=== PATIENT | male | born 1995 | race Caucasian/White ===

== ENCOUNTER 2020-01-21 08:28 | Emergency (ER) | payer OTHER ==
[~2020-01-21] VITALS: Ht 190.5 cm; Wt 122.5 kg
[~2020-01-21 08:28] MED LIST: ATA25 PO; CEPH500T PO; CETI-55 PO; HYD2.5O TP; KEN.025C TP
--- NOTE | 2020-01-21 08:29 | NUR ---
PT AMBULATED TO ER BED 11
[2020-01-21 08:41] VITALS: BP 122/53
[2020-01-21] MEDS ORDERED: NACL 0.9% 1,000 ML IV ONE (08:50)
--- NOTE | 2020-01-21 08:55 | NUR ---
24 Y/O C/C ABDOMINAL PAIN X 3 DAYS. PER PT PRESSURE SENSATION IN THE LUQ RADIATING TO THE LLQ, 10/10 PAIN. PER PT CONSTIPATION WITH SMALL PRODUCTION OF BM, PER PT BROWN/PARTS. LAST BM 1 HOUR AGO SMALL HEMATOCHEZIA, DARK RED BLOOD. PT DENIES DYSURIA. NKA. NO HX. NO SX. NO RX. NO NVD. SIDE RAIL X1.
--- NOTE | 2020-01-21 08:59 | NUR ---
PT TAKEN TO CT VIA WHEELCHAIR
--- NOTE | 2020-01-21 09:19 | NUR ---
ERMD AT BEDSIDE
[2020-01-21 09:30] LABS: BASOPHILS % (AUTO) 0.5 % (0.0-2.0); EOSINOPHILS % (AUTO) 0.3 % (0.0-4.0); HEMATOCRIT 44.4 % (36-52); HEMOGLOBIN 15.6 g/dL (12.0-18.0); MEAN CORPUSCULAR HEMOGLOBIN 32 pg (27-31); MEAN CORPUSCULAR HGB CONC 35 g/dL (33-37); MEAN CORPUSCULAR VOLUME 92.3 fL (80-94); NEUTROPHILS # (AUTO) 5.4 K/uL (1.8-7.7); PLATELET COUNT (AUTO) 232 K/uL (140-450); RED BLOOD CELL COUNT(AUTO) 4.82 MIL/uL (4.20-6.10); RED CELL DISTRIBUTION WIDTH 12.1 % (11.6-13.7); WHITE BLOOD COUNT (AUTO) 7.5 K/uL (4.8-10.8)
[2020-01-21] MEDS ORDERED: ONDANSETRON 4 MG/2 ML VIAL IVP ONE (09:30)
[2020-01-21 09:50] LABS: ALBUMIN 3.5 g/dL (3.4-5.0); ANION GAP 12.1 (8-16); CARBON DIOXIDE 27.5 mmol/L (21-32); CREATININE 0.9 mg/dL (0.6-1.3); POTASSIUM 3.6 mmol/L (3.5-5.1); TOTAL BILIRUBIN 0.5 mg/dL (0.0-1.0)
[2020-01-21 09:53] LABS: NEUTROPHILS % (AUTO) 72.2 % (42.2-75.2)
[2020-01-21 09:54] LABS: LYMPHOCYTES % (AUTO) 13.3 % (20.5-51.1); MONOCYTES % (AUTO) 13.7 % (1.7-9.3)
[2020-01-21 10:29] VITALS: BP 120/56
--- NOTE | 2020-01-21 10:30 | NUR ---
Patient discharged with v/s stable. Written and verbal after care instructions given and explained. Patient alert, oriented and verbalized understanding of instructions. Ambulatory with steady gait. All questions addressed prior to discharge. ID band removed. Patient advised to follow up with PMD. Rx of MOTRIN,FLAGYL,SENOKOT,CIPRO given. Patient educated on indication of medication including possible reaction and side effects. Opportunity to ask questions provided and answered.
== END 2020-01-21 10:30 | disposition home or self-care (01) ==
LOC: MED 08:28
DX: K52.89 Other specified noninfective gastroenteritis and colitis (principal); K59.00 Constipation, unspecified
CPT/HCPCS: 36415; 74176; 80053; 85025; 96361; 96374; 99284; J2405; J7030; 99283